=== PATIENT | female | born 1955 | race American Indian/Alaskan Native ===

== ENCOUNTER 2017-10-22 07:46 | Outpatient (CLI) | payer OTHER ==
--- NOTE | 2017-10-22 08:46 | XRay Report ---
XRAY BILATERAL KNEE THREE VIEWS EACH: 10/22/17 07:46:00 CLINICAL: Bilateral knee pain. FINDINGS: Right: Osteoarthritis with medial joint space narrowing and small medial osteophytes. Minimal widening of the lateral joint space and a small inferior lateral osteophyte. Mild varus deformity. No fracture or dislocation. Patellofemoral osteoarthritis with a large superior osteophyte. A prominent quadriceps insertion enthesophyte. Normal soft tissues. Left: Mild osteoarthritis with narrowing of the medial joint space and small medial osteophytes. Slight widening of the lateral joint space. Patellofemoral joint osteoarthritis with a large superior osteophyte and prominent quadriceps insertion enthesophyte. No fracture or dislocation. Mild varus deformity.Normal soft tissues. IMPRESSION: Bilateral osteoarthritis worse on the right than the left.
== END 2017-10-22 07:47 | disposition home or self-care (01) ==
LOC: SPVIMAG 07:46
PROVIDERS: ATTEND Orthopaedic Surgery Sports Medicine
DX: M17.0 Bilateral primary osteoarthritis of knee (principal); M21.162 Varus deformity, not elsewhere classified, left knee; M21.161 Varus deformity, not elsewhere classified, right knee